=== PATIENT | female | born 1980 | race Caucasian/White ===

== ENCOUNTER → 2017-09-27 | Outpatient (CLI) | payer OTHER | LOC: BRMIMAGING 11:59 | PROVIDERS: ATTEND Internal Medicine Rheumatology | DX: M20.11 Hallux valgus (acquired), right foot (principal); M20.12 Hallux valgus (acquired), left foot; M79.641 Pain in right hand; M79.642 Pain in left hand | CPT/HCPCS: 73130-PO; 73630-PO ==